=== PATIENT | male | born 1985 | race Caucasian/White ===

== ENCOUNTER 2020-05-04 06:14 | Emergency (ER) | payer OTHER ==
[~2020-05-04] VITALS: Ht 172.7 cm; Wt 82.0 kg
[2020-05-04] MEDS ORDERED: LORAZEPAM 1MG TABLET PO ONE (06:45)
[2020-05-04 07:35] VITALS: BP 126/78
== END 2020-05-04 08:00 | disposition home or self-care (01) ==
LOC: ER 06:14
DX: F41.0 Panic disorder [episodic paroxysmal anxiety] (principal); R56.9 Unspecified convulsions; F17.200 Nicotine dependence, unspecified, uncomplicated
CPT/HCPCS: 71045; 93005; 99283

== ENCOUNTER 2021-05-23 00:19 | Emergency (ER) | payer MEDICAID ==
[~2021-05-23] VITALS: Ht 170.2 cm; Wt 69.0 kg
[2021-05-23 01:07] LABS: BASOPHILS % 0.5 % (0.0-2.0); EOSINOPHILS % 0.1 % (0.0-5.0); HEMATOCRIT. 47.4 % (42.0-52.0); HEMOGLOBIN. 16.2 g/dL (14.0-18.0); LYMPHOCYTES % 18.2 % (20.0-50.0); MEAN CORPUSCULAR HEMOGLOBIN 28.9 pg (28.0-32.0); MEAN PLATELET VOLUME 7.5 fl (7.4-10.4); MONOCYTES % 5.6 % (2.0-8.0); NEUTROPHILS % 75.6 % (40.0-76.0); PLATELET 325 x1000/uL (130-400); RED BLOOD CELL COUNT 5.58 mill/uL (4.7-6.1); RED CELL DISTRIBUTION WIDTH 13.9 % (11.6-14.6)
[2021-05-23 01:15] LABS: CHLORIDE 103 mEq/L (98-107)
[2021-05-23 01:19] LABS: ETHANOL BLOOD < 10 mg/dL
[2021-05-23 01:44] LABS: CLARITY URINE CLEAR (CLEAR); COLOR URINE YELLOW (YELLOW); KETONES URINE TRACE (NEGATIVE); LEUKOCYTE ESTERASE URINE TRACE (NEGATIVE); NITRITE URINE NEGATIVE (NEGATIVE); OCCULT BLOOD URINE NEGATIVE (NEGATIVE); PROTEIN URINE TRACE (NEGATIVE); SPECIFIC GRAVITY URINE 1.022 (1.005-1.030)
[2021-05-23 01:59] LABS: *AMPHETAMINES SCREEN URINE PRESUMTIVE POSITIVE (NEGATIVE); *BARBITURATES SCREEN URINE NEGATIVE (NEGATIVE); *BENZODIAZEPINES SCREEN URINE NEGATIVE (NEGATIVE); *COCAINE SCREEN URINE NEGATIVE (NEGATIVE)
[2021-05-23 02:00] LABS: CANNABINOID URINE SCREEN PRESUMTIVE POSITIVE (NEGATIVE); METHADONE URINE SCREEN NEGATIVE (NEGATIVE); OPIATES URINE SCREEN NEGATIVE (NEGATIVE); PHENCYCLIDINE URINE SCREEN NEGATIVE (NEGATIVE)
[2021-05-23 04:00] VITALS: BP 140/79
== END 2021-05-23 06:27 | disposition home or self-care (01) ==
LOC: ER 00:19
DX: F41.9 Anxiety disorder, unspecified (principal); R45.851 Suicidal ideations; F12.129 Cannabis abuse with intoxication, unspecified; E87.6 Hypokalemia; F12.10 Cannabis abuse, uncomplicated; F10.229 Alcohol dependence with intoxication, unspecified; Y90.0 Blood alcohol level of less than 20 mg/100 ml
CPT/HCPCS: 36415; 80053; 80305; 80307; 80320; 80329; 81003; 85025; 99285; G0480

== ENCOUNTER 2021-08-04 11:40 | Emergency (ER) | payer MEDICAID ==
[~2021-08-04] VITALS: Ht 172.7 cm; Wt 82.0 kg
[2021-08-04] MEDS ORDERED: SODIUM CHLORIDE 0.9% 1,000 ML IV ONE (12:00)
[2021-08-04 12:40] LABS: BASOPHILS % 1.7 % (0.0-2.0); EOSINOPHILS % 2.9 % (0.0-5.0); HEMATOCRIT. 39.8 % (42.0-52.0); HEMOGLOBIN. 13.8 g/dL (14.0-18.0); LYMPHOCYTES % 29.9 % (20.0-50.0); MEAN CORPUSCULAR HEMOGLOBIN 30.9 pg (28.0-32.0); MEAN CORPUSCULAR VOLUME 89.3 fL (80.0-94.0); MEAN PLATELET VOLUME 6.8 fl (7.4-10.4); MONOCYTES % 7.1 % (2.0-8.0); NEUTROPHILS % 58.4 % (40.0-76.0); PLATELET 265 x1000/uL (130-400); RED BLOOD CELL COUNT 4.46 mill/uL (4.7-6.1); RED CELL DISTRIBUTION WIDTH 15.4 % (11.6-14.6)
[2021-08-04 12:41] LABS: CHLORIDE 106 mEq/L (98-107)
[2021-08-04] MEDS ORDERED: LORAZEPAM 2MG/ML CPJ IV ONE ×2 (12:45→20:00)
[2021-08-04 12:47] LABS: ETHANOL BLOOD 216 mg/dL
[2021-08-04 15:54] LABS: CLARITY URINE CLEAR (CLEAR); COLOR URINE YELLOW (YELLOW); KETONES URINE TRACE (NEGATIVE); LEUKOCYTE ESTERASE URINE NEGATIVE (NEGATIVE); NITRITE URINE NEGATIVE (NEGATIVE); OCCULT BLOOD URINE NEGATIVE (NEGATIVE); PROTEIN URINE TRACE (NEGATIVE); SPECIFIC GRAVITY URINE 1.019 (1.005-1.030)
[2021-08-04 16:09] LABS: *BARBITURATES SCREEN URINE NEGATIVE (NEGATIVE); *BENZODIAZEPINES SCREEN URINE NEGATIVE (NEGATIVE); *COCAINE SCREEN URINE NEGATIVE (NEGATIVE)
[2021-08-04 16:10] LABS: *AMPHETAMINES SCREEN URINE NEGATIVE (NEGATIVE); CANNABINOID URINE SCREEN PRESUMTIVE POSITIVE (NEGATIVE); METHADONE URINE SCREEN NEGATIVE (NEGATIVE); OPIATES URINE SCREEN NEGATIVE (NEGATIVE); PHENCYCLIDINE URINE SCREEN NEGATIVE (NEGATIVE)
[2021-08-04 20:00] VITALS: BP 111/63
[2021-08-04] MEDS ORDERED: OLANZAPINE 10 MG/VIAL IM ONE (22:00)
== END 2021-08-04 22:00 | disposition left against medical advice (07) ==
LOC: ER 11:40
DX: T51.0X1A Toxic effect of ethanol, accidental (unintentional), initial encounter (principal); R45.851 Suicidal ideations; F41.9 Anxiety disorder, unspecified; F17.210 Nicotine dependence, cigarettes, uncomplicated; F12.10 Cannabis abuse, uncomplicated; Y90.7 Blood alcohol level of 200-239 mg/100 ml; R26.9 Unspecified abnormalities of gait and mobility; Z20.822 Contact with and (suspected) exposure to COVID-19; Z88.5 Allergy status to narcotic agent; Y92.488 Other paved roadways as the place of occurrence of the external cause
CPT/HCPCS: 36415; 80053; 80305; 80307; 80320; 80329; 81003; 85025; 96361; 96374; 96376; 99285; J2060; J3490; J7030; G0480

== ENCOUNTER 2021-09-19 20:58 | Emergency (ER) | payer MEDICAID ==
[~2021-09-19] VITALS: Ht 175.3 cm; Wt 82.0 kg
[2021-09-19] MEDS ORDERED: LORAZEPAM 2MG/ML CPJ IM STA (21:06)
[2021-09-19] MEDS ORDERED: DIPHENHYDRAMINE 50MG/ML VIAL IM STA (21:06)
[2021-09-19] MEDS ORDERED: HALOPERIDOL LACTATE 5MG/ML VIAL IM STA (21:06)
[2021-09-19] MEDS ORDERED: SODIUM CHLORIDE 0.9% 1,000 ML IV ONE ×2 (21:15→23:30)
[2021-09-19 22:19] LABS: BASOPHILS % 0.7 % (0.0-2.0); EOSINOPHILS % 0.5 % (0.0-5.0); HEMATOCRIT. 42.3 % (42.0-52.0); HEMOGLOBIN. 14.9 g/dL (14.0-18.0); MEAN CORPUSCULAR HEMOGLOBIN 31.9 pg (28.0-32.0); MEAN CORPUSCULAR VOLUME 90.4 fL (80.0-94.0); MEAN PLATELET VOLUME 7.4 fl (7.4-10.4); MONOCYTES % 4.4 % (2.0-8.0); NEUTROPHILS % 62.4 % (40.0-76.0); PLATELET 292 x1000/uL (130-400); RED BLOOD CELL COUNT 4.67 mill/uL (4.7-6.1); RED CELL DISTRIBUTION WIDTH 13.5 % (11.6-14.6)
[2021-09-19 22:28] LABS: CHLORIDE 105 mEq/L (98-107)
[2021-09-19 22:31] LABS: ETHANOL BLOOD 251 mg/dL
[2021-09-19 23:12] LABS: CLARITY URINE CLEAR (CLEAR); COLOR URINE YELLOW (YELLOW); KETONES URINE NEGATIVE (NEGATIVE); LEUKOCYTE ESTERASE URINE NEGATIVE (NEGATIVE); NITRITE URINE NEGATIVE (NEGATIVE); OCCULT BLOOD URINE 1+ (NEGATIVE); PROTEIN URINE NEGATIVE (NEGATIVE); SPECIFIC GRAVITY URINE 1.004 (1.005-1.030); UROBILINOGEN URINE 0.2 E.U./dL (0.2-1.0)
[2021-09-19 23:24] LABS: *BARBITURATES SCREEN URINE NEGATIVE (NEGATIVE); *BENZODIAZEPINES SCREEN URINE NEGATIVE (NEGATIVE); *COCAINE SCREEN URINE NEGATIVE (NEGATIVE); METHADONE URINE SCREEN NEGATIVE (NEGATIVE); OPIATES URINE SCREEN NEGATIVE (NEGATIVE); PHENCYCLIDINE URINE SCREEN NEGATIVE (NEGATIVE)
[2021-09-19 23:25] LABS: *AMPHETAMINES SCREEN URINE PRESUMTIVE POSITIVE (NEGATIVE); CANNABINOID URINE SCREEN PRESUMTIVE POSITIVE (NEGATIVE)
[2021-09-20 08:13] VITALS: BP 115/75
== END 2021-09-20 08:16 | disposition home or self-care (01) ==
LOC: ER 20:58
DX: T43.621A Poisoning by amphetamines, accidental (unintentional), initial encounter (principal); Y92.9 Unspecified place or not applicable; F10.129 Alcohol abuse with intoxication, unspecified; Y90.8 Blood alcohol level of 240 mg/100 ml or more; R41.0 Disorientation, unspecified; Z88.5 Allergy status to narcotic agent
CPT/HCPCS: 36415; 80053; 80305; 80320; 81003; 85025; 93005; 96360; 96361; 96372; 99285; J1200; J1630; J2060; J7030; G0480

== ENCOUNTER 2021-11-28 14:09 | Emergency (ER) | payer MEDICAID ==
[~2021-11-28] VITALS: Ht 177.8 cm; Wt 90.0 kg
[2021-11-28] MEDS ORDERED: ZIPRASIDONE HCL 20MG CAPSULE PO STA (16:47)
[2021-11-28] MEDS ORDERED: LORAZEPAM 2MG/ML CPJ IV STA (16:47)
[2021-11-28] MEDS ORDERED: DIPHENHYDRAMINE 50MG CAPSULE PO STA (16:47)
[2021-11-28 19:21] LABS: EOSINOPHILS % 2.7 % (0.0-5.0); HEMATOCRIT. 43.9 % (42.0-52.0); HEMOGLOBIN. 14.9 g/dL (14.0-18.0); LYMPHOCYTES % 45.3 % (20.0-50.0); MEAN CORPUSCULAR HEMOGLOBIN 29.9 pg (28.0-32.0); MEAN CORPUSCULAR VOLUME 88.3 fL (80.0-94.0); MEAN PLATELET VOLUME 6.8 fl (7.4-10.4); MONOCYTES % 5.4 % (2.0-8.0); NEUTROPHILS % 45.6 % (40.0-76.0); PLATELET 286 x1000/uL (130-400); RED BLOOD CELL COUNT 4.97 mill/uL (4.7-6.1); RED CELL DISTRIBUTION WIDTH 12.5 % (11.6-14.6)
[2021-11-28 19:25] LABS: CLARITY URINE CLEAR (CLEAR); COLOR URINE YELLOW (YELLOW); KETONES URINE NEGATIVE (NEGATIVE); LEUKOCYTE ESTERASE URINE NEGATIVE (NEGATIVE); NITRITE URINE NEGATIVE (NEGATIVE); OCCULT BLOOD URINE NEGATIVE (NEGATIVE); PROTEIN URINE NEGATIVE (NEGATIVE); SPECIFIC GRAVITY URINE 1.009 (1.005-1.030); UROBILINOGEN URINE 0.2 E.U./dL (0.2-1.0)
[2021-11-28 19:27] LABS: CHLORIDE 108 mEq/L (98-107)
[2021-11-28 19:31] LABS: ETHANOL BLOOD 111 mg/dL
[2021-11-28 19:51] LABS: *BARBITURATES SCREEN URINE NEGATIVE (NEGATIVE); *BENZODIAZEPINES SCREEN URINE NEGATIVE (NEGATIVE); *COCAINE SCREEN URINE NEGATIVE (NEGATIVE)
[2021-11-28 19:52] LABS: *AMPHETAMINES SCREEN URINE PRESUMTIVE POSITIVE (NEGATIVE); CANNABINOID URINE SCREEN PRESUMTIVE POSITIVE (NEGATIVE); METHADONE URINE SCREEN NEGATIVE (NEGATIVE); OPIATES URINE SCREEN NEGATIVE (NEGATIVE); PHENCYCLIDINE URINE SCREEN NEGATIVE (NEGATIVE)
[2021-11-29] MEDS ORDERED: ZIPRASIDONE MESYLATE 20MG/VIAL IM ONE (07:15)
[2021-11-29] MEDS ORDERED: HALOPERIDOL LACTATE 5MG/ML VIAL IM ONE (07:30)
[2021-11-29 11:11] VITALS: BP 115/64
== END 2021-11-29 11:23 | disposition left against medical advice (07) ==
LOC: ER 14:17
DX: F23 Brief psychotic disorder (principal); I49.9 Cardiac arrhythmia, unspecified; F15.90 Other stimulant use, unspecified, uncomplicated; Z20.822 Contact with and (suspected) exposure to COVID-19; Z88.5 Allergy status to narcotic agent
CPT/HCPCS: 36415; 70450; 80053; 80305; 80307; 80320; 80329; 81003; 82140; 84443; 84484; 85025; 87635; 93005; 96372; 96374; 99285; J1630; J2060; J3486; Z7610; Q0163; G0480

== ENCOUNTER 2021-12-16 23:10 | Emergency (ER) | payer MEDICAID | END 2021-12-16 23:34 | disposition left against medical advice (07) | LOC: ER 23:10 | DX: Z53.21 Procedure and treatment not carried out due to patient leaving prior to being seen by health care provider (principal) ==

== ENCOUNTER 2023-01-30 20:11 | Emergency (ER) | payer MEDICAID ==
[~2023-01-30] VITALS: Ht 172.7 cm; Wt 73.0 kg
[2023-01-30 20:17] VITALS: BP 116/69
== END 2023-01-30 21:48 | disposition home or self-care (01) ==
LOC: ER 20:11
DX: F10.129 Alcohol abuse with intoxication, unspecified (principal); Y90.9 Presence of alcohol in blood, level not specified; F32.9 Major depressive disorder, single episode, unspecified; F20.9 Schizophrenia, unspecified; Z88.5 Allergy status to narcotic agent
CPT/HCPCS: 99283

== ENCOUNTER 2024-12-28 13:53 | Emergency (ER) | payer MEDICAID ==
[~2024-12-28] VITALS: Ht 167.6 cm; Wt 91.0 kg
[2024-12-28 13:55] VITALS: TEMP 36.6; O2SAT 99
[2024-12-28 15:53] LABS: BASOPHILS % 0.7 % (0.0-2.0); EOSINOPHILS % 0.5 % (0.0-5.0); HEMATOCRIT. 42.4 % (42.0-52.0); HEMOGLOBIN. 14.6 g/dL (14.0-18.0); LYMPHOCYTES % 28.2 % (20.0-50.0); MEAN CORPUSCULAR HEMOGLOBIN 29.5 pg (28.0-32.0); MEAN CORPUSCULAR HGB CONC 34.4 g/dL (31.0-37.0); MEAN CORPUSCULAR VOLUME 85.8 fL (80.0-94.0); MEAN PLATELET VOLUME 6.7 fl (7.4-10.4); MONOCYTES % 5.2 % (2.0-8.0); NEUTROPHILS % 65.4 % (40.0-76.0); PLATELET 146 x1000/uL (130-400); RED BLOOD CELL COUNT 4.94 mill/uL (4.7-6.1); RED CELL DISTRIBUTION WIDTH 15.1 % (11.6-14.6)
[2024-12-28 15:55] LABS: CHLORIDE 99 mEq/L (98-107); POTASSIUM 3.5 mEq/L (3.5-5.1); SODIUM 138 mEq/L (136-145)
[2024-12-28 15:56] LABS: CALCIUM 9.1 mg/dL (8.7-10.4); CARBON DIOXIDE 28 mEq/L (21-32)
[2024-12-28 16:01] LABS: CREATININE 0.9 mg/dL (0.6-1.3); ETHANOL BLOOD 295 mg/dL (<10); GLUCOSE 90 mg/dL (70-105); UREA NITROGEN BLOOD 12 mg/dL (9-23)
[2024-12-28 16:03] LABS: ALANINE AMINOTRANSFERASE 179 IU/L (10-49); ALBUMIN 4.4 g/dL (3.2-4.8); ASPARTATE AMINOTRANSFERASE 270 IU/L (<34); BILIRUBIN DIRECT 0.2 mg/dL (<=3.0); BILIRUBIN TOTAL 0.7 mg/dL (0.1-1.0); PROTEIN TOTAL 7.6 g/dL (6.0-8.3)
[2024-12-28 18:09] LABS: INR 0.9; PARTIAL THROMBOPLASTIN TIME 26.8 sec (23.4-31.0); PROTHROMBIN TIME 10.3 sec (9.6-11.0)
[2024-12-28 18:30] LABS: AMMONIA 17 uMol/L (<32)
[2024-12-28 19:40] VITALS: BP 136/93; PULSE 95; RESP 18; O2SAT 100
[2024-12-28] MEDS ORDERED: CHLORDIAZEPOXIDE 25MG CAPSULE PO NR (19:50)
[2024-12-28] MEDS: CHLORDIAZEPOXIDE 25MG CAPSULE PO ONE (19:57)
== END 2024-12-28 19:57 | disposition home or self-care (01) ==
LOC: ER 13:53
DX: F10.229 Alcohol dependence with intoxication, unspecified (principal); F20.9 Schizophrenia, unspecified; E11.9 Type 2 diabetes mellitus without complications; F31.9 Bipolar disorder, unspecified; Z88.5 Allergy status to narcotic agent; Z79.899 Other long term (current) drug therapy; Y90.9 Presence of alcohol in blood, level not specified
CPT/HCPCS: 36415; 80048; 80076; 80320; 82140; 83735; 84100; 85025; 86850; 86900; 99284; G0480

== ENCOUNTER 2025-07-29 17:30 | Emergency (ER) | payer MEDICAID ==
[~2025-07-29] VITALS: Ht 180.3 cm; Wt 78.0 kg
[2025-07-29 17:39] VITALS: BP 110/65; PULSE 68; RESP 16; TEMP 37; O2SAT 98
== END 2025-07-29 17:52 | disposition left against medical advice (07) ==
LOC: ER 17:30
DX: F10.229 Alcohol dependence with intoxication, unspecified (principal); F31.9 Bipolar disorder, unspecified; F20.9 Schizophrenia, unspecified; E11.9 Type 2 diabetes mellitus without complications; Z59.00 Homelessness unspecified; Z88.5 Allergy status to narcotic agent; Z87.891 Personal history of nicotine dependence; Y90.9 Presence of alcohol in blood, level not specified
CPT/HCPCS: 99283

== ENCOUNTER 2025-08-23 21:40 | Emergency (ER) | payer MEDICAID ==
[~2025-08-23] VITALS: Ht 167.6 cm; Wt 68.0 kg
[2025-08-23 21:51] VITALS: O2SAT 98
[2025-08-23 23:40] LABS: BASOPHILS % 1.1 % (0.0-2.0); EOSINOPHILS % 0.8 % (0.0-5.0); HEMATOCRIT. 40.3 % (42.0-52.0); HEMOGLOBIN. 13.2 g/dL (14.0-18.0); LYMPHOCYTES % 18.2 % (20.0-50.0); MEAN PLATELET VOLUME 7.4 fl (7.4-10.4); MONOCYTES % 11.9 % (2.0-8.0); NEUTROPHILS % 68.0 % (40.0-76.0); PLATELET 356 x1000/uL (130-400); RED BLOOD CELL COUNT 4.50 mill/uL (4.7-6.1); RED CELL DISTRIBUTION WIDTH 15.2 % (11.6-14.6)
[2025-08-23 23:52] LABS: CREATININE 1.0 mg/dL (0.6-1.3)
[2025-08-23 23:53] LABS: UREA NITROGEN BLOOD 12 mg/dL (9-23)
[2025-08-23 23:54] LABS: ASPARTATE AMINOTRANSFERASE 62 IU/L (<34)
[2025-08-23 23:55] LABS: BILIRUBIN DIRECT 0.1 mg/dL (<=3.0); BILIRUBIN TOTAL 0.4 mg/dL (0.1-1.0); PROTEIN TOTAL 7.3 g/dL (6.0-8.3)
[2025-08-24] MEDS: LORAZEPAM 2MG/ML UD SYRINGE IM NR (02:52)
[2025-08-24] MEDS: HALOPERIDOL LACTATE 5MG/ML VIAL IM ONE (02:53)
[2025-08-24] MEDS: DIPHENHYDRAMINE 50MG/ML VIAL IM PRN (02:53)
[2025-08-24 03:58] LABS: CLARITY URINE TURBID (CLEAR); COLOR URINE YELLOW (YELLOW); GLUCOSE URINE NEGATIVE (NEGATIVE); KETONES URINE NEGATIVE (NEGATIVE); LEUKOCYTE ESTERASE URINE NEGATIVE (NEGATIVE); NITRITE URINE NEGATIVE (NEGATIVE); OCCULT BLOOD URINE NEGATIVE (NEGATIVE); PH URINE 8.0 (4.5-8.0); PROTEIN URINE NEGATIVE (NEGATIVE); SPECIFIC GRAVITY URINE 1.021 (1.005-1.030); UROBILINOGEN URINE 1.0 E.U./dL (0.2-1.0)
[2025-08-24 04:08] LABS: *AMPHETAMINES SCREEN URINE NEGATIVE (NEGATIVE); *BARBITURATES SCREEN URINE NEGATIVE (NEGATIVE); *BENZODIAZEPINES SCREEN URINE NEGATIVE (NEGATIVE); *COCAINE SCREEN URINE PRESUMPTIVE POSITIVE (NEGATIVE); CANNABINOID URINE SCREEN PRESUMPTIVE POSITIVE (NEGATIVE); ECSTASY MDMA SCREEN URINE NEGATIVE (NEGATIVE); METHADONE URINE SCREEN NEGATIVE (NEGATIVE); OPIATES URINE SCREEN NEGATIVE (NEGATIVE); PHENCYCLIDINE URINE SCREEN NEGATIVE (NEGATIVE)
[2025-08-24 04:26] LABS: AMORPHOUS SEDIMENT URINE 3+ /lpf; BACTERIA URINE 2+; RBC URINE NONE SEEN /hpf (0-2); SQUAMOUS EPITHELIAL CELL URINE 1+ /lpf (RARE/1+); WBC URINE 0-2 /hpf (0-2)
[2025-08-24 12:13] VITALS: BP 114/71; PULSE 74; RESP 16; TEMP 36.7; O2SAT 98
[2025-10-21] MEDS ORDERED: SERT25TA MT (17:23)
[2025-10-22] MEDS ORDERED: QUET100T MT (11:04)
== END 2025-08-24 12:14 | disposition short-term general hospital (02) ==
LOC: ER 21:40
DX: R45.850 Homicidal ideations (principal); F14.90 Cocaine use, unspecified, uncomplicated; Z88.5 Allergy status to narcotic agent; Z79.899 Other long term (current) drug therapy; Z20.822 Contact with and (suspected) exposure to COVID-19
CPT/HCPCS: 80076; 80305; 80048; 81003; 80307; 80329; 80320; 85025; 36415; 93005; 99285; 87426; 96372; J1200; J1630; J2060; G0480

== ENCOUNTER 2025-09-19 19:02 | Emergency (ER) | payer MEDICAID ==
[~2025-09-19] VITALS: Ht 170.2 cm; Wt 75.0 kg
[2025-09-19 19:04] VITALS: BP 169/92; PULSE 100; RESP 16; TEMP 36.4; O2SAT 98
[2025-09-19] MEDS ORDERED: KETOROLAC 30MG/ML VIAL IM ONE (19:30)
== END 2025-09-19 19:20 | disposition home or self-care (01) ==
LOC: ER 19:02
DX: M25.561 Pain in right knee (principal); E11.9 Type 2 diabetes mellitus without complications; Z88.0 Allergy status to penicillin; Z88.5 Allergy status to narcotic agent
CPT/HCPCS: 99283; J1885

== ENCOUNTER 2025-10-05 19:06 | Emergency (ER) | payer MEDICAID ==
[~2025-10-05] VITALS: Ht 175.3 cm; Wt 82.0 kg
[2025-10-05 19:08] VITALS: O2SAT 98
[2025-10-05 19:44] LABS: BASOPHILS % 2.3 % (0.0-2.0); EOSINOPHILS % 1.5 % (0.0-5.0); HEMATOCRIT. 38.6 % (42.0-52.0); HEMOGLOBIN. 12.7 g/dL (14.0-18.0); LYMPHOCYTES % 34.6 % (20.0-50.0); MEAN PLATELET VOLUME 6.5 fl (7.4-10.4); MONOCYTES % 6.1 % (2.0-8.0); NEUTROPHILS % 55.5 % (40.0-76.0); PLATELET 277 x1000/uL (130-400); RED BLOOD CELL COUNT 4.54 mill/uL (4.7-6.1); RED CELL DISTRIBUTION WIDTH 15.1 % (11.6-14.6)
[2025-10-05 20:02] LABS: CREATININE 1.0 mg/dL (0.6-1.3); UREA NITROGEN BLOOD 11 mg/dL (9-23)
[2025-10-05 20:03] LABS: ETHANOL BLOOD 273 mg/dL (<10)
[2025-10-05 20:04] LABS: ASPARTATE AMINOTRANSFERASE 62 IU/L (<34)
[2025-10-05 20:04] LABS: *AMPHETAMINES SCREEN URINE NEGATIVE (NEGATIVE); *BARBITURATES SCREEN URINE NEGATIVE (NEGATIVE); *BENZODIAZEPINES SCREEN URINE PRESUMPTIVE POSITIVE (NEGATIVE); *COCAINE SCREEN URINE NEGATIVE (NEGATIVE); METHADONE URINE SCREEN NEGATIVE (NEGATIVE); OPIATES URINE SCREEN NEGATIVE (NEGATIVE)
[2025-10-05 20:05] LABS: BILIRUBIN DIRECT < 0.1 mg/dL (<=3.0); BILIRUBIN TOTAL 0.3 mg/dL (0.1-1.0); PROTEIN TOTAL 7.2 g/dL (6.0-8.3)
[2025-10-05 20:05] LABS: CANNABINOID URINE SCREEN PRESUMPTIVE POSITIVE (NEGATIVE); ECSTASY MDMA SCREEN URINE NEGATIVE (NEGATIVE); PHENCYCLIDINE URINE SCREEN NEGATIVE (NEGATIVE)
[2025-10-05] MEDS: HALOPERIDOL LACTATE 5MG/ML VIAL IM ONE (20:16)
[2025-10-05] MEDS: ZIPRASIDONE MESYLATE 20MG/VIAL IM ONE (21:07)
[2025-10-06] MEDS: TRAZODONE HCL 50MG TABLET PO ONE (03:55)
[2025-10-06] MEDS: POTASSIUM CHLORIDE 20MEQ/PACKET PO ONE (03:55)
[2025-10-06] MEDS: CHLORDIAZEPOXIDE 25MG CAPSULE PO ONE (05:46)
[2025-10-06 06:16] VITALS: BP 129/76; PULSE 88; RESP 19; TEMP 36.8; O2SAT 99
== END 2025-10-06 06:27 ==
LOC: ER 19:06
DX: R45.851 Suicidal ideations (principal); F10.229 Alcohol dependence with intoxication, unspecified; E11.9 Type 2 diabetes mellitus without complications; F19.10 Other psychoactive substance abuse, uncomplicated; Z59.00 Homelessness unspecified; Z88.0 Allergy status to penicillin; Z88.5 Allergy status to narcotic agent; Z20.822 Contact with and (suspected) exposure to COVID-19; Z79.899 Other long term (current) drug therapy; Y90.9 Presence of alcohol in blood, level not specified
CPT/HCPCS: 80076; 80305; 80048; 80307; 80329; 80320; 85025; 36415; 93005; 96372; 99285; 87426; J1630; J3486; Z7610; A4606; G0480

== ENCOUNTER 2025-10-20 14:23 | Emergency (ER) | payer MEDICAID ==
[~2025-10-20] VITALS: Ht 172.7 cm; Wt 82.0 kg
[2025-10-20 14:26] VITALS: BP 99/50; PULSE 86; RESP 16; TEMP 98.4; O2SAT 96
[2025-10-20 16:12] LABS: BASOPHILS % 2.1 % (0.0-2.0); EOSINOPHILS % 0.8 % (0.0-5.0); HEMATOCRIT. 40.7 % (42.0-52.0); HEMOGLOBIN. 13.3 g/dL (14.0-18.0); LYMPHOCYTES % 41.9 % (20.0-50.0); MEAN PLATELET VOLUME 6.6 fl (7.4-10.4); MONOCYTES % 4.1 % (2.0-8.0); NEUTROPHILS % 51.1 % (40.0-76.0); PLATELET 341 x1000/uL (130-400); RED BLOOD CELL COUNT 4.81 mill/uL (4.7-6.1); RED CELL DISTRIBUTION WIDTH 15.4 % (11.6-14.6)
[2025-10-20 16:41] LABS: CREATININE 0.9 mg/dL (0.6-1.3)
[2025-10-20 16:42] LABS: PROTEIN TOTAL 7.5 g/dL (6.0-8.3); UREA NITROGEN BLOOD 10 mg/dL (9-23)
[2025-10-20 16:44] LABS: ASPARTATE AMINOTRANSFERASE 33 IU/L (<34); BILIRUBIN DIRECT < 0.1 mg/dL (<=3.0); BILIRUBIN TOTAL 0.2 mg/dL (0.1-1.0)
[2025-10-20] MEDS ORDERED: LORAZEPAM 2MG/ML UD SYRINGE IV PRN (16:45)
[2025-10-20] MEDS ORDERED: NA PHOS,M-B/NA PHOS,DI-BA ENEMA 118ML PR PRN (16:45)
[2025-10-20] MEDS ORDERED: CLONIDINE 0.1MG TABLET PO PRN (16:45)
[2025-10-20] MEDS ORDERED: DOCUSATE SODIUM 100MG CAPSULE PO PRN (16:45)
[2025-10-20] MEDS ORDERED: HYDROCODONE/ACETAMINOPHEN 5/325MG TABLET PO PRN (16:45)
[2025-10-20] MEDS ORDERED: GUAIFENESIN 200MG/10ML SUGAR FREE UDC PO PRN (16:45)
[2025-10-20] MEDS ORDERED: ONDANSETRON HCL 4MG/2ML INJ IV PRN (16:45)
[2025-10-20] MEDS ORDERED: IPRATROPIUM/ALBUTEROL 0.5-3(2.5)MG/3ML NEB NEB PRN (16:45)
[2025-10-20] MEDS ORDERED: MAGNESIUM/ALUMINUM HYDROXIDE/SIMETHICONE 30ML UDC PO PRN (16:45)
[2025-10-20] MEDS ORDERED: ACETAMINOPHEN 325MG TABLET PO PRN (16:45)
[2025-10-20 17:06] LABS: ETHANOL BLOOD 453 mg/dL (<10)
[2025-10-20] MEDS ORDERED: NALOXONE HCL 0.4MG/ML VIAL IV PRN (17:15)
[2025-10-20] MEDS ORDERED: PANTOPRAZOLE SODIUM 40 MG/VIAL IV SCH (17:30)
[2025-10-21] MEDS ORDERED: MVI, ADULT NO.1 10 ML, FOLIC ACID 1 MG, THIAMINE HCL 100 MG in SODIUM CHLORIDE 0.9% 1,0... IV SCH (09:00)
[2025-10-21] MEDS ORDERED: SERT25TA MT (17:23)
[2025-10-22] MEDS ORDERED: QUET100T MT (11:04)
== END 2025-10-20 19:45 | disposition left against medical advice (07) ==
LOC: ER 14:23 → EDBEDREQ 16:23 → EDBEDREQTM 16:23 → ER 19:45 → CMPBEDREQ 10-21 07:35
DX: F10.129 Alcohol abuse with intoxication, unspecified (principal); G93.40 Encephalopathy, unspecified; Y90.8 Blood alcohol level of 240 mg/100 ml or more
CPT/HCPCS: 36415; 80048; 80076; 80320; 85025; 99284; J3411; J3490; J7030; G0480